=== PATIENT | male | born 1970 | race Caucasian/White ===

== ENCOUNTER 2021-11-17 15:24 | Outpatient (CLI) | payer OTHER | END 2021-11-17 23:59 | disposition home or self-care (01) | LOC: RAD 15:24 | PROVIDERS: ATTEND Chiropractor | DX: M47.817 Spondylosis without myelopathy or radiculopathy, lumbosacral region (principal); M51.37 Other intervertebral disc degeneration, lumbosacral region; M25.78 Osteophyte, vertebrae | CPT/HCPCS: 72100 ==